=== PATIENT | male | born 1965 | race Hispanic/Latino ===

== ENCOUNTER 2017-11-30 16:17 | Inpatient (IN) | payer BC ==
[~2017-11-30 16:17] MED LIST: Iopamidol 370 76% 100 ML VIAL ONE
[2017-11-30] MEDS ORDERED: Iopamidol 370 76% 100 ML VIAL ONE (16:22)
[2017-11-30 17:08] LABS: Hemoglobin 13.6 g/dL (14.0-18.0); Mean Corpuscular HGB CONC 33.8 g/dL (32.0-36.0); Mean Corpuscular Hemoglobin 29.8 pg (27.0-31.0); Mean Corpuscular Volume 88.1 fl (80.0-94.0); Mean Platelet Volume 7.9 fL (7.4-10.4); Platelet Count 321 thou/uL (130-400); RBC Distribution Width 13.4 % (11.5-14.5); Red Blood Cell (RBC) Count 4.58 mill/uL (4.70-6.10); White Blood Cell (WBC) Count 14.5 thou/uL (4.8-10.8)
[2017-11-30] MEDS ORDERED: Ondansetron HCl/PF 4 MG/2 ML Vial ONE ×2 (17:27→19:23)
[2017-11-30] MEDS ORDERED: PROPOFOL 200 MG/20 ML VIAL ONE (17:27)
[2017-11-30] MEDS ORDERED: Succinylcholine Chloride 20 MG/ML 10 ml SYRINGE FS ONE (17:27)
[2017-11-30] MEDS ORDERED: PHENYLEPHRINE-NS 100 MCG/ML 10 ML SYRINGE ONE (17:27)
[2017-11-30] MEDS ORDERED: Dexamethasone 20 MG/5 ML VIAL ONE (17:27)
[2017-11-30 17:29] LABS: Band 13 % (5-11); Lymphocytes 7 % (21-51); MDiff Complete? YES; Monocytes 5 % (0-10); Neutrophil 75 % (42-75); PLT Morphology Comment Appears Adequate; RBC Morphology Normal
[2017-11-30] MEDS ORDERED: Clindamycin/D5W 900 mg/50 ml Premix Bag ONE (17:55)
[2017-11-30 18:11] LABS: ALT (SGPT) 17 U/L (8-55); AST (SGOT) 9 U/L (5-34); Albumin 3.8 g/dL (3.5-5.0); Alkaline Phosphatase 81 U/L (40-150); Anion Gap 18 mmol/L (10-20); BUN (Urea Nitrogen) 40 mg/dL (8.4-25.7); Bilirubin, Total 1.5 mg/dL (0.2-1.2); CK (CPK) 41 U/L (30-200); Calc. Creatinine Clearance 0 mL/min (70-130); Calcium 9.4 mg/dL (7.8-10.44); Carbon Dioxide 23 mmol/L (22-29); Chloride 93 mmol/L (98-107); Estimated GFR-MDRD 31; Globulin 4.2 g/dL (2.4-3.5); Glucose 314 mg/dL (70-105); Potassium 4.2 mmol/L (3.5-5.1); Sodium 130 mmol/L (136-145)
--- NOTE | 2017-11-30 19:09 | CT ---
CT NECK WITH CONTRAST: 11/30/17 Multiple axial tomograms obtained through the neck with IV enhancement. HISTORY: Submandibular swelling. Assess for dental abscess. FINDINGS: There is subcutaneous haziness involving the subcutaneous tissues of the neck inferior to the mandibl e and extending inferiorly to the level of the larynx consistent with subcutaneous inflammation/cellu litis. There is an abnormal soft tissue collection in the submandibular region in the midline contain ing numerous gas pockets. In the coronal image this measures approximately 5 cm width and this measur es approximately 5 cm width and this measures approximately 4.2 cm AP dimension in the axial plane. T he gas is slightly more pronounced to the right of midline and extends to the lingual surface of the right mandible. There are caries seen involving mandibular molars on the right and there is lucency s urrounding the roots of these molars which may represent periapical abscess collection. No definite b annalisa erosion or destruction seen. There is gas and fluid collection; however along the lingual surface of the mandible at this location suggesting dental etiology with extension to the lingual surface of the mandible and extension into the submandibular soft tissues with submandibular abscess as detaile d above. Soft tissues of the neck including parotid glands, submandibular glands, thyroid gland appear unremar kable. The nasopharynx unremarkable. The base of the tongue including the genioglossus and geniohyoid muscle complex is deviated to the le ft due to this process along the lingual surface of the mandible. This gas fluid collection along the lingual surface of the mandible measures approximately 3.4 cm AP dimension x approximately 1.5 cm wi dth in the axial plane. IMPRESSION: Evidence of dental abscess involving two mandibular molars on the right with extension along the ling ual surface of the mandible on the right with dimensions given above. This extends inferiorly and int o the midline with gas and soft tissue density consistent with a submandibular abscess with dimension s given above. There is diffuse cellulitis in the subcutaneous tissues of the midline and to the righ t of midline extending in the anterior neck to the level of the larynx. POS: ASHLEIGH
[2017-11-30] MEDS ORDERED: Morphine 4 MG/ML VIAL ONE (19:24)
[2017-11-30] MEDS ORDERED: Piperacillin/Tazobactam 4.5 GM in Sodium Chloride 0.9% 100 ML IVPB SCH (20:00)
[2017-11-30] MEDS ORDERED: Chlorhexidine Gluconate 15 ML UDCUP SSP ONE (20:17)
[2017-11-30] MEDS ORDERED: Lidocaine 2% w/Epinephrine 1:200K 20 ML VIAL ONE (20:20)
[2017-11-30] MEDS ORDERED: Lidocaine 1% w/Epinephrine 1:200K 30 ML VIAL ONE (20:20)
[2017-11-30] MEDS ORDERED: Hydrocortisone 1% Cream 30 GM TUBE ONE (20:20)
[2017-11-30] MEDS ORDERED: Insulin Regular 300 UNITS/3 ML VIAL ONE (20:43)
[2017-11-30] MEDS ORDERED: Sodium Chloride 0.9% 10 ML ONE (20:43)
[2017-11-30] MEDS ORDERED: Midazolam HCl 2 mg/2 ml Vial ONE (20:54)
[2017-11-30] MEDS ORDERED: Fentanyl 250 MCG/5 ML VIAL ONE ×3 (20:54→22:31)
[2017-11-30] MEDS ORDERED: Ondansetron HCl/PF 4 MG/2 ML Vial IVP PRN (22:12)
[2017-11-30] MEDS ORDERED: Promethazine HCl 25 MG/ML VIAL IM PRN (22:12)
[2017-11-30] MEDS ORDERED: Promethazine HCl 25 MG/ML VIAL SLOW IVP PRN (22:12)
[2017-11-30] MEDS ORDERED: Morphine 5 MG/ML SYRINGE SLOW IVP PRN (22:19)
[2017-11-30] MEDS ORDERED: Ondansetron HCl/PF 4 MG/2 ML Vial SLOW IVP PRN (22:22)
[2017-11-30] MEDS ORDERED: Morphine 2 MG/ML SYRINGE SLOW IVP PRN (22:33)
[2017-11-30] MEDS ORDERED: Dextrose 5% in Water 1,000 ML IV PRN (22:58)
[2017-11-30] MEDS ORDERED: hydrALAZINE 20 MG/ML VIAL SLOW IVP PRN (22:58)
[2017-11-30] MEDS ORDERED: Morphine 4 MG/ML VIAL SLOW IVP PRN (22:58)
[2017-11-30] MEDS ORDERED: Dextrose 50% Abboject 50 ML SYRINGE SLOW IVP PRN (22:58)
[2017-11-30] MEDS ORDERED: Senokot 8.6 MG TAB PO PRN (22:58)
[2017-11-30] MEDS ORDERED: Labetalol HCl 100 MG/20 ML VIAL SLOW IVP PRN (22:58)
[2017-11-30] MEDS ORDERED: Bisacodyl 5 MG TAB PO PRN (22:58)
[2017-11-30] MEDS ORDERED: Sodium Chloride 0.9% 1,000 ML IV SCH (22:58)
--- NOTE | 2017-11-30 23:01 | PDOC.FPRHP ---
- History of Present Illness Chief Complaint: right sided gum pain History of Present Illness: 52 yo male with a pmhx of type 2 diabetes, HLD, HTN, presents with right sided gum pain since Wednesday. He complains of pain and fever since Wednesday. He also noticed worsening swelling and difficulty opening his mouth throughout the weekend. On Wednesday he went to the dentist and they gave him pain meds, and today he went to see Dr. Gonzalez who sent him to the ER. ED Course: Zosyn 4.5 mg, 2L NS, Vanc 1g, Morphine 4mg, zofran 4mg, clindamicin 900mg - Allergies/Adverse Reactions Allergies Allergy/AdvReac Type Severity Reaction Status Date / Time No Known Allergies Allergy Unverified 11/30/17 19:51 - History PMHx:Type 2 Diabetes, HTN, HLD, CKD (unknown baseline), hx of nephrolithiasis PSHx: none FHx:none Social:denies smoking, alcohol, drug use - Review of Systems General: reports: fever/chills. denies: weight/appetite/sleep changes ENT: reports: other (right sided jaw pain). denies: nasal congestion, rhinorrhea Respiratory: denies: cough, congestion Cardiovascular: denies: chest pain, palpitation Gastrointestinal: denies: nausea, vomiting, diarrhea Genitourinary: denies: incontinence, dysuria Skin: denies: rashes, lesions Musculoskeletal: reports: pain, tenderness, swelling (right gum/jaw area) Neurological: denies: numbness, syncope Psychological: denies: anxiety, depression - Vital signs BP: [128/72] HR: [91-109] RR: [19] Tmax: [98.6] Pox: [97]% on [RA] Wt: [72.3 kg] - Physical Exam Constitutional: awake, alert and oriented HEENT: normocephalic and atraumatic, PERRLA, EOMI, no scleral icterus, normal nasal mucosa, other (right sided submandibular region swelling and tender to palpation, inability to open mouth completely due to pain) Neck: other (right sided swelling;) Heart: RRR, normal S1/S2, no murmurs/rubs/gallops Lungs: CTAB, no respiratory distress, good air movement Abdomen: soft, non-tender, bowel sounds present, no masses/distention Musculoskeletal: normal structure, normal tone Neurological: no focal deficit Heme/Lymphatic: no unusual bruising or bleeding, no purpura Psychiatric: normal mood and affect, good judgment and insight FMR H&P: Results - Labs Result Diagrams: 11/30/17 16:58 11/30/17 17:42 Lab results: WBC 14.5 thou/uL (4.8-10.8) H 11/30/17 16:58 Hgb 13.6 g/dL (14.0-18.0) L 11/30/17 16:58 Hct 40.3 % (42.0-52.0) L 11/30/17 16:58 MCV 88.1 fl (80.0-94.0) 11/30/17 16:58 Plt Count 321 thou/uL (130-400) 11/30/17 16:58 Band Neuts % (Manual) 13 % (5-11) H 11/30/17 16:58 ESR Westergren 123 mm/hr (Less than 20) 11/30/17 16:58 Sodium 130 mmol/L (136-145) L 11/30/17 17:42 Potassium 4.2 mmol/L (3.5-5.1) 11/30/17 17:42 Chloride 93 mmol/L (98-107) L 11/30/17 17:42 Carbon Dioxide 23 mmol/L (22-29) 11/30/17 17:42 BUN 40 mg/dL (8.4-25.7) H 11/30/17 17:42 Creatinine 2.25 mg/dL (0.6-1.3) H 11/30/17 17:42 Glucose 314 mg/dL (70-105) H 11/30/17 17:42 Lactic Acid 1.7 mmol/L (0.5-2.2) 11/30/17 17:42 Calcium 9.4 mg/dL (7.8-10.44) 11/30/17 17:42 Total Bilirubin 1.5 mg/dL (0.2-1.2) H 11/30/17 17:42 AST 9 U/L (5-34) 11/30/17 17:42 ALT 17 U/L (8-55) 11/30/17 17:42 Alkaline Phosphatase 81 U/L (40-150) 11/30/17 17:42 Creatine Kinase 41 U/L (30-200) 11/30/17 17:42 C-Reactive Protein 25.47 mg/dL (= or < 0.5) H 11/30/17 17:42 Serum Total Protein 8.0 g/dL (6.0-8.3) 11/30/17 17:42 Albumin 3.8 g/dL (3.5-5.0) 11/30/17 17:42 - Radiology Interpretation Other Status: image reviewed by me (CT head and neck: submandibular abscess 3.4 X1.5cm on the right affecting two molars with associated cellulitis extending to the larynx.), report reviewed by me FMR H&P: A/P - Problem List (1) Submandibular abscess Current Visit: Yes Status: Acute Code(s): K12.2 - CELLULITIS AND ABSCESS OF MOUTH (2) Laryngeal cellulitis Current Visit: Yes Status: Acute Code(s): J38.7 - OTHER DISEASES OF LARYNX (3) Diabetes mellitus type 2 in nonobese Current Visit: Yes Status: Acute Code(s): E11.9 - TYPE 2 DIABETES MELLITUS WITHOUT COMPLICATIONS (4) HTN (hypertension) Current Visit: Yes Status: Acute Code(s): I10 - ESSENTIAL (PRIMARY) HYPERTENSION (5) HLD (hyperlipidemia) Current Visit: Yes Status: Acute Code(s): E78.5 - HYPERLIPIDEMIA, UNSPECIFIED (6) CKD (chronic kidney disease) Current Visit: Yes Status: Acute Code(s): N18.9 - CHRONIC KIDNEY DISEASE, UNSPECIFIED (7) EMIL (acute kidney injury) Current Visit: Yes Status: Acute Code(s): N17.9 - ACUTE KIDNEY FAILURE, UNSPECIFIED (8) Hyperglycemia Current Visit: Yes Status: Acute Code(s): R73.9 - HYPERGLYCEMIA, UNSPECIFIED (9) Hypochloremia Current Visit: Yes Status: Acute Code(s): E87.8 - OTH DISORDERS OF ELECTROLYTE AND FLUID BALANCE, NEC (10) Hyponatremia Current Visit: Yes Status: Acute Code(s): E87.1 - HYPO-OSMOLALITY AND HYPONATREMIA (11) Hyperbilirubinemia Current Visit: Yes Status: Acute Code(s): E80.6 - OTHER DISORDERS OF BILIRUBIN METABOLISM - Plan 52 yo male with pmhx of diabetes, type 2, htn, hld, who presents with 3 day hx of right sided submandibular pain, swelling, and erythema admitted for a submandibular abscess and laryngeal cellulitis. 1.)Submandibular abscess 2.)Larygneal external cellulitis 3.)Type 2 Diabetes Mellitus 4.)EMIL on CKD 5.)HTN 7.)HLD 8.)Hyponatremia 9.) Hypochloremia 10.)Hyperbilirubinemia FMR H&P: Upper Level - Plan Date/Time: 11/30/17 8744 I, [], have evaluated this patient and agree with findings/plan as outlined by general internal medicine physician resident. Pertinent changes/additions are listed here. Attending Addendum - Attending Addendum Date/Time: 11/30/17 5923 I personally evaluated the patient and discussed the management with Dr. Ru Oneill on 11/30/17. I agree with the History, Examination, Assessment and Plan documented above with any addition or exceptions noted below. Patient with right sided mandibular abscess with sepsis, improved now. Will be taken by OMF to OR tonight for drainage. Continue abx coverage for polymicrobials and anaerobes.
[2017-11-30] MEDS: Piperacillin/Tazobactam 3.375 GM in Sodium Chloride 0.9% 100 ML IVPB SCH (23:54)
[2017-11-30] MEDS: Sodium Chloride 0.9% 1,000 ML IV SCH (23:56)
[2017-12-01 00:39] VITALS: BMI 28.3
[2017-12-01] MEDS ORDERED: Piperacillin/Tazobactam 3.375 GM in Sodium Chloride 0.9% 100 ML IVPB SCH (02:30)
[2017-12-01] MEDS ORDERED: Vancomycin HCl 1 GM in Premix Bag 1 BAG IVPB SCH ×2 (04:00→07:00)
[2017-12-01 05:53] LABS: #Basophils 0.2 thou/uL (0.0-0.2); #Lymphocytes 0.5 thou/uL (1.20-3.40); #Monocytes 1.1 thou/uL (0.11-0.59); #Neutrophils 13.2 thou/uL (1.40-6.50); %Basophils 1.5 % (0.0-1.0); %Lymphocytes 3.2 % (21.0-51.0); %Monocytes 7.5 % (0.0-10.0); %Neutrophils 87.8 % (42.0-75.0); Hemoglobin 11.4 g/dL (14.0-18.0); Mean Corpuscular Hemoglobin 29.5 pg (27.0-31.0); Mean Corpuscular Volume 89.1 fl (80.0-94.0); Platelet Count 295 thou/uL (130-400); RBC Distribution Width 11.9 % (11.5-14.5); Red Blood Cell (RBC) Count 3.87 mill/uL (4.70-6.10)
[2017-12-01 06:21] LABS: Anion Gap 15 mmol/L (10-20); BUN (Urea Nitrogen) 35 mg/dL (8.4-25.7); Calc. Creatinine Clearance 43 mL/min (70-130); Calcium 8.6 mg/dL (7.8-10.44); Carbon Dioxide 24 mmol/L (22-29); Chloride 99 mmol/L (98-107); Estimated GFR-MDRD 34; Glucose 253 mg/dL (70-105); Potassium 4.4 mmol/L (3.5-5.1); Sodium 134 mmol/L (136-145)
[2017-12-01] MEDS: Piperacillin/Tazobactam 3.375 GM in Sodium Chloride 0.9% 100 ML IVPB SCH ×2 (06:26→11:45)
[2017-12-01] MEDS: HumaLOG 300 UNITS/3 ML VIAL SC PRN ×4 (07:16→20:35)
--- NOTE | 2017-12-01 08:22 | PDOC.FM ---
- Subjective Subjective: Patient states the pain in his neck is improved. He still complains of the swelling and difficulty with swallowing. He denies chest pain, sob, n/v/d. He states he did not have fever or chills overnight. He also states he was able to get some sleep overnight. No other complaints this morning. - Objective Vital Signs & Weight: Vital Signs (12 hours) Temp Pulse Resp BP BP Pulse Ox 12/01/17 08:15 98.6 F 67 18 150/81 H 97 12/01/17 04:00 98.9 F 82 16 126/77 98 12/01/17 00:05 100 F H 94 18 94 L 11/30/17 22:58 100 F H 94 18 166/85 H 94 L Weight Weight 72.62 kg I&O: 11/30/17 12/01/17 12/02/17 06:59 06:59 06:59 Intake Total 800 Output Total 850 Balance -50 Result Diagrams: 12/01/17 04:49 12/01/17 04:49 <Lv Rooney - Last Filed: 12/01/17 08:26> - Objective Vital Signs & Weight: Vital Signs (12 hours) Temp Pulse Resp BP Pulse Ox 12/01/17 08:15 98.6 F 67 18 150/81 H 97 12/01/17 04:00 98.9 F 82 16 126/77 98 Weight Weight 72.62 kg I&O: 11/30/17 12/01/17 12/02/17 06:59 06:59 06:59 Intake Total 800 Output Total 850 Balance -50 Result Diagrams: 12/01/17 04:49 12/01/17 04:49 <Lm Aguero - Last Filed: 12/01/17 12:35> Phys Exam - Physical Examination HEENT: moist MMs Large Right sided swelling submandibular. Bandaged from surgery. Respiratory: no wheezing, clear to auscultation bilateral Cardiovascular: RRR, no significant murmur Gastrointestinal: soft, non-tender, no distention, positive bowel sounds Musculoskeletal: no edema, pulses present Neurological: non-focal, moves all 4 limbs Psychiatric: normal affect, A&O x 3 <Lv Rooney - Last Filed: 12/01/17 08:26> Dx/Plan (1) Sepsis Code(s): A41.9 - SEPSIS, UNSPECIFIED ORGANISM Status: Acute (2) Submandibular abscess Code(s): K12.2 - CELLULITIS AND ABSCESS OF MOUTH Status: Acute (3) Laryngeal cellulitis Code(s): J38.7 - OTHER DISEASES OF LARYNX Status: Acute (4) EMIL (acute kidney injury) Code(s): N17.9 - ACUTE KIDNEY FAILURE, UNSPECIFIED Status: Acute (5) CKD (chronic kidney disease) Code(s): N18.9 - CHRONIC KIDNEY DISEASE, UNSPECIFIED Status: Acute (6) Diabetes mellitus type 2 in nonobese Code(s): E11.9 - TYPE 2 DIABETES MELLITUS WITHOUT COMPLICATIONS Status: Acute (7) HLD (hyperlipidemia) Code(s): E78.5 - HYPERLIPIDEMIA, UNSPECIFIED Status: Acute (8) HTN (hypertension) Code(s): I10 - ESSENTIAL (PRIMARY) HYPERTENSION Status: Acute (9) Hyperbilirubinemia Code(s): E80.6 - OTHER DISORDERS OF BILIRUBIN METABOLISM Status: Acute (10) Hypochloremia Code(s): E87.8 - OTH DISORDERS OF ELECTROLYTE AND FLUID BALANCE, NEC Status: Acute (11) Hyponatremia Code(s): E87.1 - HYPO-OSMOLALITY AND HYPONATREMIA Status: Acute - Plan Plan: 1. Sepsis 2/2 to Submandibular abscess - s/p I&D with OMF - Blood cultures pending - Vancomycin & Zosyn 11/30 - IVF 2. Laryngeal cellulitis - Blood cultures pending - Continue antibiotics 3. DM2 - Continue home meds - SSI and accuchecks 4. HTN - Home meds 5. HLD - Home meds 6. CKD - Monitor with BMP - Avoid nephrotoxic drugs 7. EMIL - IVF - Monitor with BMP 8. Hypochloremia - Resolved - likely secondary to decreased PO intake 9. Hyponatremia - Improved - Likely secondary to decreased PO intake - IVF 10. Hyperbilirubinemia - Likely secondary to decreased PO intake - Will repeat bilirubin if signs/symptoms present. Disposition: Stable. Will await culture results and OMF recs. <Lv Rooney - Last Filed: 12/01/17 08:26> Attending Addendum - Attending Addendum Date/Time: 12/01/17 2614 I personally evaluated the patient and discussed the management with Dr. Rooney I agree with the History, Examination, Assessment and Plan documented above with any addition or exceptions noted below. will consult with Infectious disease appreciate rec. <Lm Aguero - Last Filed: 12/01/17 12:35>
[2017-12-01] MEDS: Chlorhexidine Gluconate 15 ML UDCUP SSP SCH ×3 (08:43→20:32)
[2017-12-01] MEDS: Sodium Chloride 0.9% 1,000 ML IV SCH ×3 (08:43→20:39)
[2017-12-01] MEDS: Amlodipine 5 MG TAB PO SCH ×2 (08:44→20:31)
[2017-12-01] MEDS: Lisinopril/Hydrochlorothiazide 20/25 mg Tablet PO SCH ×2 (08:44→20:32)
[2017-12-01] MEDS ORDERED: Vancomycin HCl 1.25 GM in Sodium Chloride 0.9% 250 ML 250 ML IVPB SCH (09:00)
--- NOTE | 2017-12-01 09:03 | OP ---
DATE OF PROCEDURE: 12/01/2017 SURGEON: Jones Mayo D.D.S. PREOPERATIVE DIAGNOSES: 1. Necrotic teeth 31 and 32. 2. Right submandibular right sublingual submental space abscess, possible necrotizing fasciitis. POSTOPERATIVE DIAGNOSES: 1. Necrotic teeth 31 and 32. 2. Necrotizing fasciitis and right submandibular, sublingual, submental abscesses. PROCEDURE PERFORMED: 1. Extraction of teeth 31 and 32. 2. Incision and drainage of right submandibular, sublingual, submental abscesses. COMPLICATIONS: None. DRAINS: Three Sandy drains were placed, 1 going from right submandibular incision to the extractio n socket #32, 1 going from the submental incision to extraction socket 32 and a second one going from the right submandibular incision to the left submental incision. Drains were secured with a 2-0 Pro parker stitch. ESTIMATED BLOOD LOSS: 10 mL. URINE OUTPUT: Not recorded. ANESTHESIA: General endotracheal anesthesia through oral tube. BRIEF PATIENT HISTORY AND PROCEDURE IN DETAIL: This is a 52-year-old male with history of diabetes a nd renal failure who presented with a 4-5 day history of jaw pain and swelling, difficulty swallowing , found to have a large gas forming infection in the above noted spaces. The patient was [facility], prepped, and draped in sterile fashion. A throat pack was placed. Approximately a 2 cm incision was made in the right submandibular area of neck, dissection through skin, subcutaneou s tissue, and platysma were done followed by blunt dissection through the superficial layer of deep c ervical fascia with exposure of the inferior border of the mandible. Dirty dishwaterish purulence an d necrotic tissue was found in the tissues. This was sent for culture. Next, incision was made in the submental area of the neck. Blunt dissection through platysma and to the superficial layer of deep cervical fascia. This abscess cavity tracked from the submental area a ll the way back to the right submandibular area and a crossover to the left submandibular area slight ly. Procedure was then taken to the mouth. A mouth prop was placed. Teeth numbers 31 and 32 were r emoved with an elevator, curet of the sockets, lingual degloving of the mandible with a full thicknes s mucoperiosteal flap was made. Drains were placed in the above noted fashion. The areas were thoro ughly irrigated. The patient tolerated the procedure well. The patient will be transferred to the [facility] per the Hospitalist team to be placed on blood pressure medication and also blood sugar control and ID consult for antibiotics.
--- NOTE | 2017-12-01 12:46 | CON ---
DATE OF CONSULTATION: 12/01/2017 REASON FOR CONSULTATION: Submandibular abscess associated with dental infection. HISTORY OF PRESENT ILLNESS: A 52-year-old patient who has history of type 2 diabetes mellitus and hypertension, and was admitted with week and half history of progressively worsening pain in the right side of his mandible associated with swelling. The patient was evaluated and underwent surgical intervention today. Operative note was reviewed. There was a large gas forming infection in the right side of his submandibular, sublingual, submental area and an incision was made in the right submandibular region. Dissection through skin, subcutaneous tissue, and platysma done and then dissection through the superficial layer of the deep cervical fascia and exposure of the inferior border of the mandible. There was evidence of purulence and necrotic tissue and this was submitted for culture and another incision made in the submental area with dissection and there was an abscess cavity tracked from the submental area all the way back to the right submandibular area and towards a bit to the left submandibular region slightly. Teeth numbers 31 and 32 were removed. Sockets were curetted and some degloving of the mandible with a full thickness mucoperiosteal flap made with drains placed. Currently, he has mild to moderate pain in the area. No headaches, visual symptoms. No dyspnea, chest pain. No abdominal pain, diarrhea or genitourinary symptoms, no joint symptoms. No neurological symptoms. PAST MEDICAL HISTORY: Hypertension, diabetes, nephrolithiasis, hyperlipidemia, some form of renal disease. ALLERGIES: None. MEDICATIONS: Januvia, Glucotrol, Norvasc, lisinopril, hydrochlorothiazide, Toprol-XL, amoxicillin, and naproxen. CURRENT MEDICATIONS: Include Zosyn and vancomycin. FAMILY HISTORY: Noncontributory. PHYSICAL EXAMINATION: VITAL SIGNS: T-max 100, currently 98.6, blood pressure 150/81, pulse 67, and O2 sat 97%. SKIN: Shows the right submandibular region with packing and dressing. Peripheral IV access. No lymphadenopathy. HEENT: Ocular movements conjugate. NECK: Supple. LUNGS: With symmetric clear breath sounds. HEART: S1, S2, regular rate. No S3 or S4. ABDOMEN: Soft, nondistended or tender. No bladder distention, no ascites. EXTREMITIES: No joint inflammatory activity. Pulses 1+ in dorsalis pedis. He moves extremities equally. NEUROLOGIC: Cognitive function appears to be intact. LABORATORY DATA AND IMAGING DATA: White cell count 14 and now 15, hemoglobin 13 and 11, platelets 295, 75% neutrophils, 13% bands. Sodium 130, creatinine 2.25, AST 9, ALT 17, alkaline phosphatase 81, creatinine kinase 841, globulin 4.2. CRP 25.7. There is a CT scan soft tissue neck with evidence of dental abscess involving 2 mandibular molars on the right extension along the lingual surface of the mandible on the right extending inferiorly and into the midline with gas and soft tissue density. Gram stain thus far from the samples showed moderate gram positive cocci, rods and variable rods. ASSESSMENT: 1. Diabetes mellitus type 2. 2. Dental decay with abscess extension, submandibular and submental spaces. Possible early osteomyelitis by usual pathogens typically, microaerophilic oral neela such as Viridans Streptococci, Pepto Streptococci, fusobacterium and so on. We will switch him to meropenem 1 gram q.8 hours. PICC line placement and plan discharge with treatment in the outpatient setting. HECTOR
--- NOTE | 2017-12-01 13:47 | CON ---
DATE OF CONSULTATION: 11/30/2017 REASON FOR CONSULTATION: Neck abscess and dental abscess. CHIEF COMPLAINT: Neck and jaw pain and swelling. HISTORY OF PRESENT ILLNESS: This is a 52-year-old male, non-Kazakh speaking, he is present with his daughter who speaks Kazakh and is translating for us, presented with a 4-1/2- to 5-day his tory of right lower jaw pain, swelling, and difficulty swallowing. He was seen by his primary care d anuja today and transferred to the ER due to the large swelling in his neck. The patient does compla in of tooth pain on the lower right, as well as neck pain and difficulty swallowing. No complaints o f fever or chills. No complaints of numbness. PAST MEDICAL HISTORY: Diabetes, hypertension, hyperlipidemia, chronic kidney disease. MEDICATIONS: Januvia, Glucotrol, amlodipine, lisinopril, Toprol. SOCIAL HISTORY: The patient denies alcohol, tobacco, or drug use. ALLERGIES: No known drug allergies. PHYSICAL EXAMINATION: VITAL SIGNS: The patient is sating 97% on room air currently, blood pressure 121/78, pulse of 87, re spirations 12, unlabored. GENERAL: The patient is awake, alert, oriented x3. He is currently in no acute distress. He does h ave good oral opening. HEENT: His oropharynx is clear. Floor of his mouth is fluctuant with some induration and some eleva tion on the right side. He has a very extensive amount of right submandibular and submental, as well as left submental area swelling, tenderness to palpation and edema. He has decayed teeth numbers #3 1 and #32, which are tender to palpation. He has no paresthesia currently. LABORATORY DATA: The patient's white count is 13. He does have an elevated creatinine at 2.1. IMAGING: CT scan of the neck shows decayed teeth numbers #31 and #32 with periapical abscesses. The re appears to be a break in the lingual cortical plate of #32, possible source of this abscess, large 5 cm gas collection extending from the right submandibular, sublingual space to the midline in the l eft submental area, possibly all the way over to the left submandibular area. ASSESSMENT: This is a 52-year-old diabetic male with history of chronic kidney disease, with large g as forming bilateral submandibular and submental space infections, likely secondary to necrotic teeth #31 and #32. PLAN: We will start the patient on IV antibiotics per the hospitalist service. Vancomycin and Zosyn are excellent choice at this point. We will, however, like Infectious Disease consult due to severi ty of this infection. Also, we will plan to take the patient back to the operating room this evening for extraction of teeth #31 and #32 and incision and drainage of the above-noted abscesses in the bi lateral submandibular and submental spaces.
[2017-12-01] MEDS ORDERED: Meropenem 1 GM in Sodium Chloride 0.9% 100 ML IVPB SCH (14:00)
[2017-12-01] MEDS: Meropenem 1 GM in Sterile Water 20 ML SLOW IVP SCH ×2 (14:34→21:50)
--- NOTE | 2017-12-01 17:42 | PRG ---
DATE OF SERVICE: 12/01/2017 SUBJECTIVE: No acute 24 hour events. The patient is doing well postoperative day #1 status post dra vaughn of deep neck space infections and removal of necrotic teeth 31 and 32. The patient is voiding, ambulating, tolerating p.o., has decreased dysphasia and able to tolerate a liquid diet at this poin t. OBJECTIVE: VITAL SIGNS: The patient has been afebrile over the last 24 hours. His temperature currently is 98. 3, pulse 64, respiration rate 18, satting 98% on room air. His blood pressure currently is 124/66. HEENT: Intraoral wounds are intact. His oral opening is excellent. His neck wound is much more sof t and supple. He does have a moderate amount of seropurulent discharge from the drain sites and subm andibular area. Decreased erythema around the neck and chest. LABORATORY DATA: Cultures are pending of fluid. White count is 15 today; however, no current bandem ia. ASSESSMENT: Doing well postoperative day #1 status post I&D of gas-forming bacteria deep neck space infection. PLAN: Continue antibiotics as per Dr. Murphy' recommendations. He is currently on meropenem. The pa tient is to get a PICC line tomorrow per Dr. Murphy. We will leave drains in as the patient still has a seropurulent drainage. We will follow tomorrow.
[2017-12-02] MEDS: HYDROcodone/Acetaminophen 7.5/325 mg Tablet PO PRN ×2 (04:41→21:06)
[2017-12-02 05:34] LABS: Anion Gap 12 mmol/L (10-20); BUN (Urea Nitrogen) 36 mg/dL (8.4-25.7); Calc. Creatinine Clearance 44 mL/min (70-130); Calcium 8.8 mg/dL (7.8-10.44); Carbon Dioxide 25 mmol/L (22-29); Chloride 104 mmol/L (98-107); Estimated GFR-MDRD 35; Glucose 175 mg/dL (70-105); Potassium 4.1 mmol/L (3.5-5.1); Sodium 137 mmol/L (136-145)
[2017-12-02] MEDS: Sodium Chloride 0.9% 1,000 ML IV SCH ×2 (05:58→15:30)
[2017-12-02] MEDS: Meropenem 1 GM in Sterile Water 20 ML SLOW IVP SCH ×3 (05:58→21:07)
[2017-12-02] MEDS: HumaLOG 300 UNITS/3 ML VIAL SC PRN (06:08)
--- NOTE | 2017-12-02 06:32 | PDOC.FM ---
- Subjective Subjective: Patient states he is more sore today. He also notices something in his mouth where his teeth used to be. He states he was able to eat jello and pudding yesterday, but didn't try much else. He states he has no pain anywhere other than his right neck. He denies chest pain, sob, n/v/d, trouble breathing, or cough. No other complaints today. - Objective Vital Signs & Weight: Vital Signs (12 hours) Temp Pulse Resp BP BP Pulse Ox 12/02/17 04:00 98.6 F 58 L 14 147/80 H 98 12/02/17 00:00 98.4 F 64 16 120/71 97 12/01/17 20:32 85 146/83 H 12/01/17 20:31 85 146/83 H 12/01/17 20:00 98.4 F 85 19 12/01/17 19:52 98.4 F 74 19 144/80 H 100 Weight Weight 72.62 kg I&O: 11/30/17 12/01/17 12/02/17 06:59 06:59 06:59 Intake Total 800 3580 Output Total 850 900 Balance -50 2680 Result Diagrams: 12/02/17 04:51 12/02/17 04:51 <Lv Rooney - Last Filed: 12/02/17 08:21> - Objective Vital Signs & Weight: Vital Signs (12 hours) Temp Pulse Resp BP BP Pulse Ox 12/02/17 11:06 98.2 F 62 16 147/80 H 97 12/02/17 08:22 60 146/84 H 12/02/17 08:21 60 146/84 H 12/02/17 08:00 98.2 F 60 16 12/02/17 07:32 98.2 F 60 16 146/84 H 97 12/02/17 04:00 98.6 F 58 L 14 147/80 H 98 Weight Weight 72.62 kg I&O: 12/01/17 12/02/17 12/03/17 06:59 06:59 06:59 Intake Total 800 3580 Output Total 850 900 Balance -50 2680 Result Diagrams: 12/02/17 04:51 12/02/17 04:51 <Lm Aguero - Last Filed: 03/15/18 12:19> Phys Exam - Physical Examination HEENT: moist MMs Right swelling under mandible. Drains in place in oral cavity. Neck: no nodes Respiratory: no wheezing, clear to auscultation bilateral Cardiovascular: RRR, no significant murmur Gastrointestinal: soft, non-tender, no distention, positive bowel sounds Musculoskeletal: no edema Neurological: non-focal, normal sensation, moves all 4 limbs Psychiatric: normal affect, A&O x 3 Skin: no rash <Lv Rooney - Last Filed: 12/02/17 08:21> Dx/Plan (1) Sepsis Code(s): A41.9 - SEPSIS, UNSPECIFIED ORGANISM Status: Acute (2) Submandibular abscess Code(s): K12.2 - CELLULITIS AND ABSCESS OF MOUTH Status: Acute (3) Laryngeal cellulitis Code(s): J38.7 - OTHER DISEASES OF LARYNX Status: Acute (4) EMIL (acute kidney injury) Code(s): N17.9 - ACUTE KIDNEY FAILURE, UNSPECIFIED Status: Acute (5) CKD (chronic kidney disease) Code(s): N18.9 - CHRONIC KIDNEY DISEASE, UNSPECIFIED Status: Acute (6) Diabetes mellitus type 2 in nonobese Code(s): E11.9 - TYPE 2 DIABETES MELLITUS WITHOUT COMPLICATIONS Status: Acute (7) HLD (hyperlipidemia) Code(s): E78.5 - HYPERLIPIDEMIA, UNSPECIFIED Status: Acute (8) HTN (hypertension) Code(s): I10 - ESSENTIAL (PRIMARY) HYPERTENSION Status: Acute (9) Hyperbilirubinemia Code(s): E80.6 - OTHER DISORDERS OF BILIRUBIN METABOLISM Status: Acute (10) Hypochloremia Code(s): E87.8 - OTH DISORDERS OF ELECTROLYTE AND FLUID BALANCE, NEC Status: Acute (11) Hyponatremia Code(s): E87.1 - HYPO-OSMOLALITY AND HYPONATREMIA Status: Acute - Plan Plan: 1. Sepsis 2/2 to Submandibular abscess - s/p I&D with OMF - Blood cultures pending - Vancomycin & Zosyn 11/30 stopped - Meropenem 12/01 and PICC placement today - IVF 2. Laryngeal cellulitis - Blood cultures pending - Continue antibiotics 3. DM2 - Continue home meds - SSI and accuchecks 4. HTN - Home meds 5. HLD - Home meds 6. CKD - Monitor with BMP - Avoid nephrotoxic drugs 7. EMIL - IVF - Monitor with BMP 8. Hypochloremia - Resolved - likely secondary to decreased PO intake 9. Hyponatremia - Resolved - Likely secondary to decreased PO intake - IVF 10. Hyperbilirubinemia - Likely secondary to decreased PO intake - Will repeat bilirubin if signs/symptoms present. Disposition: Stable. Will await culture results and ID & OMF recs. <Lv Rooney - Last Filed: 12/02/17 08:21> Attending Addendum - Attending Addendum Date/Time: 12/02/17 1218 I personally evaluated the patient and discussed the management with Dr. Rooney I agree with the History, Examination, Assessment and Plan documented above with any addition or exceptions noted below. Januvia dosed for renal disease. <Lm Aguero - Last Filed: 12/02/17 12:19>
[2017-12-02 06:50] LABS: #Lymphocytes 1.8 thou/uL (1.20-3.40); #Monocytes 1.2 thou/uL (0.11-0.59); #Neutrophils 9.5 thou/uL (1.40-6.50); %Basophils 0.3 % (0.0-1.0); %Eosinophils 0.2 % (0.0-10.0); %Lymphocytes 14.5 % (21.0-51.0); %Monocytes 9.6 % (0.0-10.0); %Neutrophils 75.5 % (42.0-75.0); Hemoglobin 11.1 g/dL (14.0-18.0); Mean Corpuscular HGB CONC 32.4 g/dL (32.0-36.0); Mean Corpuscular Volume 92.7 fl (80.0-94.0); Mean Platelet Volume 7.3 fL (7.4-10.4); Platelet Count 339 thou/uL (130-400); RBC Distribution Width 12.2 % (11.5-14.5); Red Blood Cell (RBC) Count 3.71 mill/uL (4.70-6.10); White Blood Cell (WBC) Count 12.6 thou/uL (4.8-10.8)
[2017-12-02 08:17] LABS: Vancomycin, Trough 10.8 ug/mL
[2017-12-02] MEDS: Chlorhexidine Gluconate 15 ML UDCUP SSP SCH ×3 (08:21→21:05)
[2017-12-02] MEDS: Amlodipine 5 MG TAB PO SCH ×2 (08:21→21:05)
[2017-12-02] MEDS: Lisinopril/Hydrochlorothiazide 20/25 mg Tablet PO SCH ×2 (08:22→21:07)
[2017-12-02 09:07] LABS: Hemoglobin A1c 12.2 % (4.0-6.0)
[2017-12-02] MEDS: glipiZIDE 10 MG TAB PO SCH ×2 (11:10→21:07)
[2017-12-02] MEDS: Alogliptin 6.25 MG TAB PO SCH (11:12)
--- NOTE | 2017-12-02 12:29 | SPC ---
SONOGRAPHIC GUIDED LEFT UPPER EXTREMITY PICC: HISTORY: Neck infection. FINDINGS: After explaining the procedure and answering all questions, the left upper extremity was prepped and draped in the usual sterile fashion. Sterile technique, buffered local anesthesia, sonographic eric nce, and a 22-gauge needle were used to carefully access the left cephalic vein. Standard technique was then used to place the tip of a 5 Welsh dual-lumen PICC so that the tip lies at the level of the superior vena cava. The catheter was flushed and secured externally. The patient tolerated the pro cedure well and was returned in unchanged condition. FLUORO TIME: 0 seconds. IMPRESSION: Technically successful left upper extremity PICC placement. Catheter is now ready for use. POS: ASHLE[facility]
--- NOTE | 2017-12-02 15:40 | PRG ---
DATE OF SERVICE: 12/02/2017 HISTORY: Patient is having pain to swallow and complains that he cannot chew; otherwise, no respirat ory symptoms. No abdominal pain, diarrhea, or genitourinary symptoms. PHYSICAL EXAMINATION: VITAL SIGNS: Normal. BP 147/80. HEAD/NECK: Area pretty much the same as yesterday. LUNGS: Clear. HEART: S1, S2, regular rate. ABDOMEN: Soft, not distended or tender. EXTREMITIES: Moves all extremities equally. LABORATORY DATA: White cell count 12.6, hemoglobin 11, platelets 339. Sodium 137, creatinine 2.0, w hich is improved from admission. The cultures with alpha strep, not strep pneumonia. ASSESSMENT AND DISCUSSION: Type 2 diabetes, dental decay with abscess extension submandibular and ibarra bmental spaces, possible early osteo. Continue Merrem 1 gram q.12 h. and discharge planning. The pa tyree is ready to be discharged tomorrow, he can go to my office at 10:30 for training for home IV in fusion of meropenem. We will follow him in the clinic once a week.
[2017-12-03] MEDS: HYDROcodone/Acetaminophen 7.5/325 mg Tablet PO PRN ×3 (05:18→20:38)
[2017-12-03 05:36] LABS: #Eosinphils 0.1 thou/uL (0.0-0.7); #Lymphocytes 1.8 thou/uL (1.20-3.40); #Neutrophils 6.7 thou/uL (1.40-6.50); %Basophils 0.1 % (0.0-1.0); %Eosinophils 0.7 % (0.0-10.0); %Lymphocytes 19.3 % (21.0-51.0); %Monocytes 10.1 % (0.0-10.0); %Neutrophils 69.8 % (42.0-75.0); Hemoglobin 11.9 g/dL (14.0-18.0); Mean Corpuscular HGB CONC 32.6 g/dL (32.0-36.0); Mean Corpuscular Hemoglobin 29.5 pg (27.0-31.0); Mean Corpuscular Volume 90.4 fl (80.0-94.0); Mean Platelet Volume 6.6 fL (7.4-10.4); Platelet Count 355 thou/uL (130-400); Red Blood Cell (RBC) Count 4.04 mill/uL (4.70-6.10); White Blood Cell (WBC) Count 9.5 thou/uL (4.8-10.8)
[2017-12-03 06:00] LABS: Anion Gap 12 mmol/L (10-20); BUN (Urea Nitrogen) 30 mg/dL (8.4-25.7); Calc. Creatinine Clearance 56 mL/min (70-130); Calcium 9.1 mg/dL (7.8-10.44); Carbon Dioxide 27 mmol/L (22-29); Chloride 103 mmol/L (98-107); Estimated GFR-MDRD 46; Glucose 116 mg/dL (70-105); Potassium 3.9 mmol/L (3.5-5.1); Sodium 138 mmol/L (136-145)
--- NOTE | 2017-12-03 06:21 | PDOC.FM ---
- Subjective Subjective: Patient had a good night. He states he still is getting pain in his neck. He states that he can't open his mouth very wide and so he hasn't been eating much , but he has been drinking fluid and trying pudding and soft foods. He denies chest pain, sob, troubling breathing, fevers, or chills. No other complaints today. - Objective Vital Signs & Weight: Vital Signs (12 hours) Temp Pulse Resp BP BP Pulse Ox 12/03/17 04:00 98.3 F 65 15 157/82 H 97 12/02/17 23:40 98.3 F 63 17 146/81 H 98 12/02/17 21:07 78 152/85 H 12/02/17 21:05 78 152/85 H 12/02/17 20:29 98.2 F 76 16 167/83 H 98 12/02/17 20:00 98.2 F 78 16 Weight Weight 72.62 kg I&O: 12/01/17 12/02/17 12/03/17 06:59 06:59 06:59 Intake Total 800 3580 936 Output Total 850 900 Balance -50 2680 936 Result Diagrams: 12/03/17 05:15 12/03/17 05:15 <Lv Rooney - Last Filed: 12/03/17 08:18> - Objective Vital Signs & Weight: Vital Signs (12 hours) Temp Pulse Resp BP BP Pulse Ox 12/03/17 11:11 98.5 F 66 15 160/85 H 97 12/03/17 08:45 62 146/80 H 12/03/17 07:40 98.4 F 62 18 146/80 H 97 12/03/17 07:00 98.4 F 62 18 12/03/17 04:00 98.3 F 65 15 157/82 H 97 Weight Weight 72.62 kg I&O: 12/02/17 12/03/17 12/04/17 06:59 06:59 06:59 Intake Total 3580 3146 Output Total 900 Balance 2680 3146 Result Diagrams: 12/03/17 05:15 12/03/17 05:15 <Lm Aguero - Last Filed: 12/03/17 13:27> Phys Exam - Physical Examination HEENT: moist MMs Swelling over right mandible area. Bandaged Neck: no nodes Respiratory: no wheezing, clear to auscultation bilateral Cardiovascular: RRR, no significant murmur Gastrointestinal: soft, non-tender, no distention, positive bowel sounds Musculoskeletal: no edema, pulses present Neurological: non-focal, normal sensation, moves all 4 limbs Lymphatic: no nodes Psychiatric: normal affect, A&O x 3 Skin: no rash <Lv Rooney - Last Filed: 12/03/17 08:18> Dx/Plan (1) Sepsis Code(s): A41.9 - SEPSIS, UNSPECIFIED ORGANISM Status: Acute (2) Submandibular abscess Code(s): K12.2 - CELLULITIS AND ABSCESS OF MOUTH Status: Acute (3) Laryngeal cellulitis Code(s): J38.7 - OTHER DISEASES OF LARYNX Status: Acute (4) EMIL (acute kidney injury) Code(s): N17.9 - ACUTE KIDNEY FAILURE, UNSPECIFIED Status: Acute (5) CKD (chronic kidney disease) Code(s): N18.9 - CHRONIC KIDNEY DISEASE, UNSPECIFIED Status: Acute (6) Diabetes mellitus type 2 in nonobese Code(s): E11.9 - TYPE 2 DIABETES MELLITUS WITHOUT COMPLICATIONS Status: Acute (7) HLD (hyperlipidemia) Code(s): E78.5 - HYPERLIPIDEMIA, UNSPECIFIED Status: Acute (8) HTN (hypertension) Code(s): I10 - ESSENTIAL (PRIMARY) HYPERTENSION Status: Acute (9) Hyperbilirubinemia Code(s): E80.6 - OTHER DISORDERS OF BILIRUBIN METABOLISM Status: Acute (10) Hypochloremia Code(s): E87.8 - OTH DISORDERS OF ELECTROLYTE AND FLUID BALANCE, NEC Status: Acute (11) Hyponatremia Code(s): E87.1 - HYPO-OSMOLALITY AND HYPONATREMIA Status: Acute - Plan Plan: 1. Sepsis 2/2 to Submandibular abscess - s/p I&D with OMF - Blood cultures pending - Vancomycin & Zosyn 11/30 stopped - Meropenem 12/01 and PICC placement 12/02 - IV antibiotics with Dr. Murphy as outpatient 2. Laryngeal cellulitis - Blood cultures pending - Continue antibiotics 3. DM2 - Continue home meds - SSI and accuchecks 4. HTN - Home meds 5. HLD - Home meds 6. CKD - Monitor with BMP - Avoid nephrotoxic drugs 7. EMIL - IVF - Monitor with BMP 8. Hypochloremia - Resolved - likely secondary to decreased PO intake 9. Hyponatremia - Resolved - Likely secondary to decreased PO intake - IVF 10. Hyperbilirubinemia - Likely secondary to decreased PO intake - Will repeat bilirubin if signs/symptoms present. Disposition: Stable. Patient ready for discharge today for lab[facility] antibiotics with Dr. Murphy. <Lv Rooney - Last Filed: 12/03/17 08:18> Attending Addendum - Attending Addendum Date/Time: 12/03/17 6312 I personally evaluated the patient and discussed the management with Dr. Rooney I agree with the History, Examination, Assessment and Plan documented above with any addition or exceptions noted below. Patient still with significant wound drainage painful swallowing will benefit from continued stay. <Lm Aguero - Last Filed: 12/03/17 13:27>
[2017-12-03] MEDS: Sodium Chloride 0.9% 1,000 ML IV SCH ×2 (06:38→09:20)
[2017-12-03] MEDS: Meropenem 1 GM in Sterile Water 20 ML SLOW IVP SCH ×3 (06:39→22:56)
[2017-12-03] MEDS: Chlorhexidine Gluconate 15 ML UDCUP SSP SCH ×3 (08:44→19:51)
[2017-12-03] MEDS: Alogliptin 6.25 MG TAB PO SCH (08:44)
[2017-12-03] MEDS: Lisinopril/Hydrochlorothiazide 20/25 mg Tablet PO SCH ×2 (08:45→19:57)
[2017-12-03] MEDS: glipiZIDE 10 MG TAB PO SCH ×2 (08:45→19:53)
[2017-12-03] MEDS: Amlodipine 5 MG TAB PO SCH ×2 (08:45→19:51)
[2017-12-03] MEDS: HumaLOG 300 UNITS/3 ML VIAL SC PRN (20:04)
[2017-12-04] MEDS: HYDROcodone/Acetaminophen 7.5/325 mg Tablet PO PRN (05:40)
[2017-12-04] MEDS: Meropenem 1 GM in Sterile Water 20 ML SLOW IVP SCH ×3 (05:41→21:34)
--- NOTE | 2017-12-04 06:29 | PDOC.FM ---
- Subjective Subjective: Pt reports doing well overnight. Denies any fever or chills. reports having some mild pain. Says pain being well controlled at this time with medication. Denies any other pain elsewhere. No other concerns at this time. - Objective MAR Reviewed: Yes Vital Signs & Weight: Vital Signs (12 hours) Temp Pulse Resp BP BP Pulse Ox 12/04/17 05:52 174/84 H 12/04/17 00:00 98.7 F 60 19 181/88 H 97 12/03/17 21:15 160/86 H 12/03/17 20:00 98.4 F 76 19 175/92 H 98 12/03/17 19:57 74 177/96 H 12/03/17 19:51 74 177/96 H 12/03/17 19:50 98.4 F 76 19 98 Weight Weight 72.62 kg I&O: 12/02/17 12/03/17 12/04/17 06:59 06:59 06:59 Intake Total 3580 3146 1413 Output Total 900 Balance 2680 3146 1413 Result Diagrams: 12/03/17 05:15 12/03/17 05:15 Radiology Reviewed by me: Yes (No new imaging to review) <Romel Tay - Last Filed: 12/04/17 07:17> - Objective Vital Signs & Weight: Vital Signs (12 hours) Temp Pulse Resp BP BP Pulse Ox 12/04/17 11:45 98.1 F 59 L 20 161/84 H 97 12/04/17 08:39 71 131/81 18 08:38 71 131/81 18 07:35 98.6 F 71 16 131/81 99 18 07:00 98.6 F 71 16 12/04/17 05:52 174/84 H Weight Weight 72.62 kg I&O: 12/03/17 12/04/17 12/05/17 06:59 06:59 06:59 Intake Total 3146 2213 Balance 3146 2213 Result Diagrams: 12/03/17 05:15 12/03/17 05:15 <Lm Aguero - Last Filed: 12/04/17 12:22> Phys Exam - Physical Examination Constitutional: NAD HEENT: PERRLA, moist MMs R. cheek swollen. Neck dressed at this time. No drainage noted. Dressing intact Respiratory: no wheezing, no rales, no rhonchi, clear to auscultation bilateral Cardiovascular: RRR, no significant murmur Gastrointestinal: soft, non-tender, no distention, positive bowel sounds Musculoskeletal: no edema, pulses present Neurological: non-focal, moves all 4 limbs Lymphatic: no nodes Psychiatric: normal affect Skin: no rash, cap refill <2 seconds <Romel Tay - Last Filed: 12/04/17 07:17> Dx/Plan (1) Submandibular abscess Code(s): K12.2 - CELLULITIS AND ABSCESS OF MOUTH Status: Acute (2) Laryngeal cellulitis Code(s): J38.7 - OTHER DISEASES OF LARYNX Status: Acute (3) EMIL (acute kidney injury) Code(s): N17.9 - ACUTE KIDNEY FAILURE, UNSPECIFIED Status: Acute (4) CKD (chronic kidney disease) Code(s): N18.9 - CHRONIC KIDNEY DISEASE, UNSPECIFIED Status: Acute (5) Diabetes mellitus type 2 in nonobese Code(s): E11.9 - TYPE 2 DIABETES MELLITUS WITHOUT COMPLICATIONS Status: Acute (6) HLD (hyperlipidemia) Code(s): E78.5 - HYPERLIPIDEMIA, UNSPECIFIED Status: Acute (7) HTN (hypertension) Code(s): I10 - ESSENTIAL (PRIMARY) HYPERTENSION Status: Acute (8) Hyperbilirubinemia Code(s): E80.6 - OTHER DISORDERS OF BILIRUBIN METABOLISM Status: Acute - Plan Plan: 1. Sepsis 2/2 to Submandibular abscess - s/p I&D with OMF Keep drains in over the weekend - Blood cultures pending - Vancomycin & Zosyn 11/30 stopped - Meropenem 12/01 and PICC placement 12/02 - IV antibiotics with Dr. Murphy as outpatient -Cx grew out Strep Anginosus organism- sens to current tx. Will continue to follow I&D recs 2. Laryngeal cellulitis - Blood cultures- NGTD 48 hours - Continue antibiotics 3. DM2 - Continue home meds. Blood sugar eloevated - SSI and accuchecks 4. HTN - Home meds. BP elevated. Increased metoprolol at this time. Will want to watch his heart rate 5. HLD - Home meds 6. CKD - Monitor with BMP - Avoid nephrotoxic drugs 7. EMIL -Was on IVF. Discontinued. Encourage PO intake - Monitor with BMP 8. Hypochloremia - Resolved - likely secondary to decreased PO intake 9. Hyponatremia - Resolved - Likely secondary to decreased PO intake - IVF 10. Hyperbilirubinemia - Likely secondary to decreased PO intake - Will repeat bilirubin if signs/symptoms present. <Romel Tay - Last Filed: 12/04/17 07:17> Attending Addendum - Attending Addendum Date/Time: 12/04/17 1222 I personally evaluated the patient and discussed the management with Dr. Tay I agree with the History, Examination, Assessment and Plan documented above with any addition or exceptions noted below. <Lm Aguero - Last Filed: 12/04/17 12:22>
[2017-12-04] MEDS: HumaLOG 300 UNITS/3 ML VIAL SC PRN ×3 (06:30→21:18)
[2017-12-04] MEDS: Alogliptin 6.25 MG TAB PO SCH (08:38)
[2017-12-04] MEDS: Amlodipine 5 MG TAB PO SCH ×2 (08:38→21:18)
[2017-12-04] MEDS: Chlorhexidine Gluconate 15 ML UDCUP SSP SCH ×3 (08:39→21:19)
[2017-12-04] MEDS: Lisinopril/Hydrochlorothiazide 20/25 mg Tablet PO SCH ×2 (08:39→21:18)
[2017-12-04] MEDS: glipiZIDE 10 MG TAB PO SCH ×2 (08:39→21:19)
--- NOTE | 2017-12-04 15:19 | PRG ---
DATE OF SERVICE: 12/04/2017 SUBJECTIVE: The patient sitting in bed, in no acute distress, reports he is doing well. No new intr aoral or extraoral complaints or new symptoms, tolerating p.o. intake, voiding, ambulating, reports n o dysphagia at this time. OBJECTIVE: VITAL SIGNS: Stable. Continues to be afebrile. HEENT: Intraoral opening is good. Left floor of mouth is soft. Right floor of mouth induration imp roving. Extraction sites healing within normal limits. No intraoral erythema, edema, or purulence a ppreciated extraorally. One of the submandibular drains was removed. The other 2 were advanced with minimal seropurulent secretions from the drain sites, but continues to be decreased induration of th e neck. No erythema is present at this time and minimal tenderness to palpation along the submental and submandibular areas. LABORATORY DATA: The patient's white count normalized. ASSESSMENT: Postoperative day 4, status post incision and drainage of gas forming bacteria deep neck space infection. The patient continuing to improve. PLAN: Continue antibiotics per Dr. Murphy' recommendations. Plan to remove the remaining drains jayleen rrow with continued minimal output. The patient will likely be ready for discharge tomorrow or Wednesday morning.
[2017-12-04 17:10] LABS: Fungus Stain Final report (.)
[2017-12-04 17:10] LABS: Fungus Stain Final report (.)
[2017-12-05] MEDS: Meropenem 1 GM in Sterile Water 20 ML SLOW IVP SCH ×3 (05:53→21:27)
[2017-12-05] MEDS: HumaLOG 300 UNITS/3 ML VIAL SC PRN ×3 (06:51→17:28)
--- NOTE | 2017-12-05 06:59 | PDOC.FM ---
- Subjective Subjective: Pt doing well this morning. Denies any acute events overnight. Reports having some pain but says pain is tolerable. Says pain medication is adequately controlling at this time. Pt denies fever/chills. Denies any increased drainage. tolerating PO. Denies any abdominal pain. Denies any chest pain or SOB. No other concerns at this time. - Objective MAR Reviewed: Yes Vital Signs & Weight: Vital Signs (12 hours) Temp Pulse Resp BP BP BP Pulse Ox 12/05/17 05:49 97.9 F 65 16 138/82 97 12/04/17 23:47 98.7 F 66 16 156/82 H 99 12/04/17 21:18 65 157/83 H 12/04/17 20:00 98.4 F 65 16 12/04/17 19:49 98.4 F 65 16 157/83 H 98 Weight Weight 72.62 kg I&O: 12/03/17 12/04/17 12/05/17 06:59 06:59 06:59 Intake Total 3145 2213 1040 Balance 3146 2213 1040 Result Diagrams: 12/03/17 05:15 12/03/17 05:15 Radiology Reviewed by me: Yes (no new imaging at this time) <Romel Tay - Last Filed: 12/05/17 07:01> - Objective Vital Signs & Weight: Vital Signs (12 hours) Temp Pulse Resp BP BP Pulse Ox 12/05/17 09:15 61 12/05/17 08:52 98.3 F 61 18 136/86 100 12/05/17 07:56 97.9 F 65 16 12/05/17 05:49 97.9 F 65 16 138/82 97 12/04/17 23:47 98.7 F 66 16 156/82 H 99 Weight Weight 72.62 kg I&O: 12/04/17 12/05/17 12/06/17 06:59 06:59 06:59 Intake Total 9093 1040 Balance 2213 1040 Result Diagrams: 12/05/17 07:11 12/05/17 07:11 <Lm Aguero - Last Filed: 12/05/17 11:39> Phys Exam - Physical Examination Constitutional: NAD Pharynx clear no redness noted. Minimal drainage or pus seen in R. side Drains in place Swelling improved from yesterday, no redness or heat noted Dressing in place, No drainage or bleeding noted Respiratory: no wheezing, no rales, no rhonchi, clear to auscultation bilateral Cardiovascular: RRR, no significant murmur, no rub Gastrointestinal: soft, non-tender, positive bowel sounds Musculoskeletal: pulses present Lymphatic: no nodes Psychiatric: normal affect, A&O x 3 Skin: no rash, cap refill <2 seconds <Romel Tay - Last Filed: 12/05/17 07:01> Dx/Plan (1) Submandibular abscess Code(s): K12.2 - CELLULITIS AND ABSCESS OF MOUTH Status: Acute (2) Laryngeal cellulitis Code(s): J38.7 - OTHER DISEASES OF LARYNX Status: Acute (3) EMIL (acute kidney injury) Code(s): N17.9 - ACUTE KIDNEY FAILURE, UNSPECIFIED Status: Acute (4) CKD (chronic kidney disease) Code(s): N18.9 - CHRONIC KIDNEY DISEASE, UNSPECIFIED Status: Acute (5) Diabetes mellitus type 2 in nonobese Code(s): E11.9 - TYPE 2 DIABETES MELLITUS WITHOUT COMPLICATIONS Status: Acute (6) HLD (hyperlipidemia) Code(s): E78.5 - HYPERLIPIDEMIA, UNSPECIFIED Status: Acute (7) HTN (hypertension) Code(s): I10 - ESSENTIAL (PRIMARY) HYPERTENSION Status: Acute (8) Hyperbilirubinemia Code(s): E80.6 - OTHER DISORDERS OF BILIRUBIN METABOLISM Status: Acute - Plan Plan: 1. Sepsis 2/2 to Submandibular abscess - s/p I&D with OMF Keep drains in over the weekend. Plan to take drains out tmrw and possibly discharge tmrw - Blood cultures- NGTD - Vancomycin & Zosyn 11/30 stopped - Meropenem 12/01 and PICC placement 12/02 - IV antibiotics with Dr. Murphy as outpatient -Cx grew out Strep Anginosus organism- sens to current tx. Will continue to follow I&D recs. Also growing out anaerobic joy at this time. Sens pending. Will continue to follow I&D recs 2. Laryngeal cellulitis - Blood cultures- NGTD 48 hours - Continue antibiotics 3. DM2 - Continue home meds. Blood sugar stable - SSI and accuchecks 4. HTN - Home meds. BP elevated yesterday. Increased metoprolol at this time. BP coming down. HR stable. Will continue to follow and adjust medications as needed 5. HLD - Home meds 6. CKD - Monitor with BMP - Avoid nephrotoxic drugs 7. EMIL -Was on IVF. Discontinued. Encourage PO intake - Monitor with BMP 8. Hypochloremia - Resolved - likely secondary to decreased PO intake 9. Hyponatremia - Resolved - Likely secondary to decreased PO intake - IVF 10. Hyperbilirubinemia - Likely secondary to decreased PO intake - Will repeat bilirubin if signs/symptoms present. <Romel Tay - Last Filed: 12/05/17 07:01> Attending Addendum - Attending Addendum Date/Time: 12/05/17 6104 I personally evaluated the patient and discussed the management with Dr. Tay I agree with the History, Examination, Assessment and Plan documented above with any addition or exceptions noted below. swelling improved tolerating diet drain out today or tomorrow discharge approaching. <Lm Aguero - Last Filed: 12/05/17 11:39>
[2017-12-05 07:25] LABS: #Eosinphils 0.2 thou/uL (0.0-0.7); #Lymphocytes 2.1 thou/uL (1.20-3.40); #Monocytes 1.1 thou/uL (0.11-0.59); #Neutrophils 5.6 thou/uL (1.40-6.50); %Basophils 0.4 % (0.0-1.0); %Eosinophils 2.3 % (0.0-10.0); %Lymphocytes 22.9 % (21.0-51.0); %Monocytes 11.7 % (0.0-10.0); %Neutrophils 62.7 % (42.0-75.0); Hemoglobin 12.6 g/dL (14.0-18.0); Mean Corpuscular HGB CONC 32.7 g/dL (32.0-36.0); Mean Corpuscular Hemoglobin 29.4 pg (27.0-31.0); Mean Corpuscular Volume 89.8 fl (80.0-94.0); Mean Platelet Volume 6.1 fL (7.4-10.4); Platelet Count 476 thou/uL (130-400); RBC Distribution Width 12.1 % (11.5-14.5); Red Blood Cell (RBC) Count 4.29 mill/uL (4.70-6.10)
[2017-12-05 07:43] LABS: Anion Gap 14 mmol/L (10-20); BUN (Urea Nitrogen) 32 mg/dL (8.4-25.7); Calc. Creatinine Clearance 53 mL/min (70-130); Carbon Dioxide 32 mmol/L (22-29); Chloride 95 mmol/L (98-107); Estimated GFR-MDRD 44; Glucose 193 mg/dL (70-105); Potassium 4.5 mmol/L (3.5-5.1); Sodium 136 mmol/L (136-145)
[2017-12-05] MEDS: Lisinopril/Hydrochlorothiazide 20/25 mg Tablet PO SCH ×2 (09:15→21:21)
[2017-12-05] MEDS: Alogliptin 6.25 MG TAB PO SCH (09:15)
[2017-12-05] MEDS: Amlodipine 5 MG TAB PO SCH ×2 (09:15→21:22)
[2017-12-05] MEDS: glipiZIDE 10 MG TAB PO SCH ×2 (09:15→21:22)
[2017-12-05] MEDS: Chlorhexidine Gluconate 15 ML UDCUP SSP SCH ×3 (09:16→21:21)
--- NOTE | 2017-12-05 16:30 | PRG ---
DATE OF SERVICE: 12/05/2017 SUBJECTIVE: The patient is lying in bed comfortably. Reports no acute events overnight. No new sym ptoms or complaints. Patient states I am ready to go home. OBJECTIVE: Vital signs are stable and afebrile. Clinical exam continues to improve. Minimal output from neck wounds. Mandibular range of motion improved. Extraction site is healing within normal li mits. No new edema, erythema, or tenderness to palpation. ASSESSMENT: A 52-year-old male postop day #5, status post extraction of teeth A, I&D of submandibula r and submental abscess showing continued improvement. Sandy drains were removed at bedside. Exte nsive postop instructions were given to the patient including diligent hygiene, Peridex mouth rinse t wice a day. Wound care instructions as well as expected follow [place] in [place] [facility] [place] 12[place]08[facility]. The patient is to call [phone] for an appointment or with questions or concerns or worsening symptom s after discharge.
[2017-12-06 05:07] VITALS: TEMP 98.3
[2017-12-06] MEDS: Meropenem 1 GM in Sterile Water 20 ML SLOW IVP SCH (05:19)
[2017-12-06] MEDS: HumaLOG 300 UNITS/3 ML VIAL SC PRN (06:35)
--- NOTE | 2017-12-06 08:03 | PDOC.FM ---
- Subjective Subjective: Patient is dressed and eating breakfast. He is scheduled for an appt with Dr. Murphy this morning. He reports minimal pain and drainage. He is ready to go home. No acute events overnight. - Objective MAR Reviewed: Yes Vital Signs & Weight: Vital Signs (12 hours) Temp Pulse Resp BP BP Pulse Ox 12/06/17 03:56 98.3 F 63 16 116/72 98 12/05/17 23:55 98.2 F 63 16 127/76 97 12/05/17 21:22 98.3 F 62 16 147/87 H 147/87 H 12/05/17 21:21 62 147/87 H Weight Weight 72.62 kg I&O: 12/05/17 12/06/17 12/07/17 06:59 06:59 06:59 Intake Total 1040 680 Balance 1040 680 Result Diagrams: 12/05/17 07:11 12/05/17 07:11 Phys Exam - Physical Examination Constitutional: NAD HEENT: PERRLA, moist MMs R sided facial swelling, improving; no obvious drainage in oropharynx Respiratory: no wheezing, no rales, clear to auscultation bilateral Cardiovascular: RRR, no significant murmur Musculoskeletal: pulses present Neurological: non-focal, normal sensation, moves all 4 limbs Psychiatric: normal affect, A&O x 3 Skin: cap refill <2 seconds Dx/Plan (1) Submandibular abscess Code(s): K12.2 - CELLULITIS AND ABSCESS OF MOUTH Status: Acute (2) CKD (chronic kidney disease) Code(s): N18.9 - CHRONIC KIDNEY DISEASE, UNSPECIFIED Status: Acute (3) Diabetes mellitus type 2 in nonobese Code(s): E11.9 - TYPE 2 DIABETES MELLITUS WITHOUT COMPLICATIONS Status: Acute (4) HLD (hyperlipidemia) Code(s): E78.5 - HYPERLIPIDEMIA, UNSPECIFIED Status: Acute (5) HTN (hypertension) Code(s): I10 - ESSENTIAL (PRIMARY) HYPERTENSION Status: Acute - Plan Plan: 1. Sepsis 2/2 to Submandibular abscess - s/p I&D with OMF Drain's removed yesterday. OMFS signed off and ready for d/c today. - Blood cultures- NGTD - Vancomycin & Zosyn 11/30 stopped - Meropenem 12/01 and PICC placement 12/02 - IV antibiotics with Dr. Murphy as outpatient - Cx grew out Strep Anginosus organism- sens to current tx. Will continue to follow I&D recs. Also growing out anaerobic joy at this time. Sens pending. Will continue to follow I&D recs 2. Laryngeal cellulitis - Blood cultures- NGTD 48 hours - Continue antibiotics 3. DM2 - Continue home meds. Blood sugar stable - SSI and accuchecks 4. HTN - Home meds. BP stable with increased metoprolol on 12/05 5. HLD - Home meds 6. CKD - Monitor with BMP - Avoid nephrotoxic drugs 7. EMIL -Was on IVF. Discontinued. Encourage PO intake - Monitor with BMP 8. Hypochloremia - Resolved - likely secondary to decreased PO intake 9. Hyponatremia - Resolved - Likely secondary to decreased PO intake - IVF 10. Hyperbilirubinemia - Likely secondary to decreased PO intake - Will repeat bilirubin if signs/symptoms present.
[2017-12-06 08:19] VITALS: BP 124/78
--- NOTE | 2017-12-06 13:37 | ADD-PRG ---
DATE OF SERVICE: 12/06/2017 This is an addendum to the note of Dr. Zenaida Kerns. Mr. Wilkins is doing well this morning. He is tolerating a near normal diet and is ready for discharge . He will be followed up for long-term treatment of his dental abscess with IV antibiotics with Dr. Escobar Murphy. He had been admitted last week with a submandibular abscess secondary to dental infec tion. He underwent extensive surgery and has been on broad spectrum antibiotics. A PICC line has bee n placed and he will be continued on intravenous antibiotics for an extended period of time under the direction of Dr. Murphy as there was possible early osteomyelitis as well. Clinically, this morning; however, he is much improved and ready for discharge with the above followup.
--- NOTE | 2017-12-07 20:01 | EKG ---
Test Reason : STAT Blood Pressure : / mmHG Vent. Rate : 091 BPM Atrial Rate : 091 BPM P-R Int : 112 ms QRS Dur : 104 ms QT Int : 362 ms P-R-T Axes : 044 -20 -09 degrees QTc Int : 445 ms Normal sinus rhythm Minimal voltage criteria for LVH, may be normal variant Borderline ECG When compared with ECG of 08-APR-2007 09:24, No significant change was found Confirmed by RICHARD STANLEY (2) on 12/07/2017 8:01:22 PM Referred By: Confirmed By:RICHARD STANLEY
[2017-12-30 14:31] LABS: Fungus Culture Final report (.)
[2017-12-30 14:31] LABS: Fungus Culture Final report (.)
== END 2017-12-06 08:32 | disposition home or self-care (01) | DRG 853 ==
LOC: ERS 16:17 → SDC/OP 20:23 → SURG A 20:24
PROVIDERS: ADMIT Family Medicine; ATTEND Family Medicine
PROC: 0W9500Z Drainage of Lower Jaw with Drainage Device, Open Approach (ICD-10-PCS; principal; 2017-12-01)
PROC: 0CDXXZ1 Extraction of Lower Tooth, Multiple, External Approach (ICD-10-PCS; 2017-12-01)
PROC: 02HV33Z Insertion of Infusion Device into Superior Vena Cava, Percutaneous Approach (ICD-10-PCS; 2017-12-02)
PROC: B548ZZA Ultrasonography of Superior Vena Cava, Guidance (ICD-10-PCS; 2017-12-02)
DX: A40.8 Other streptococcal sepsis (principal); M72.6 Necrotizing fasciitis; N17.9 Acute kidney failure, unspecified; E11.22 Type 2 diabetes mellitus with diabetic chronic kidney disease; E87.1 Hypo-osmolality and hyponatremia; K12.2 Cellulitis and abscess of mouth; K04.7 Periapical abscess without sinus; E86.0 Dehydration; E78.5 Hyperlipidemia, unspecified; K02.9 Dental caries, unspecified; K04.1 Necrosis of pulp; I12.9 Hypertensive chronic kidney disease with stage 1 through stage 4 chronic kidney disease, or unspecified chronic kidney disease; N18.9 Chronic kidney disease, unspecified; Z79.84 Long term (current) use of oral hypoglycemic drugs; B95.4 Other streptococcus as the cause of diseases classified elsewhere; E87.8 Other disorders of electrolyte and fluid balance, not elsewhere classified; E80.6 Other disorders of bilirubin metabolism; J38.7 Other diseases of larynx; E11.65 Type 2 diabetes mellitus with hyperglycemia
CPT/HCPCS: 36415; 36416; 36569; 70491; 80048; 80053; 80202; 82550; 83036; 83605; 85025; 85652; 86140; 86850; 86900; 86901; 87040; 87070; 87102; 87186; 87205; 87206; 93005; 93010; 96361; 96365; 96367; 96375; A4216; C1751; J1100; J1815; J2185; J2250; J2270; J2405; J2543; J2704; J3010; J3370; J3490; J7050